=== PATIENT | male | born 1990 | race African-American/Black ===

== ENCOUNTER 2019-11-21 00:13 | Emergency (ER) | payer MEDICAID ==
[~2019-11-21] VITALS: Ht 172.7 cm; Wt 65.0 kg
[2019-11-21 00:41] VITALS: BP 118/63
== END 2019-11-21 01:45 | disposition left against medical advice (07) ==
LOC: ER 00:13
DX: Z53.21 Procedure and treatment not carried out due to patient leaving prior to being seen by health care provider (principal); J45.909 Unspecified asthma, uncomplicated; Z88.0 Allergy status to penicillin

== ENCOUNTER 2020-03-17 09:23 | Emergency (ER) | payer MEDICAID ==
[~2020-03-17] VITALS: Ht 167.6 cm; Wt 72.0 kg
[2020-03-17 09:26] VITALS: BP 128/78
== END 2020-03-17 11:48 | disposition left against medical advice (07) ==
LOC: ER 09:23
DX: J45.909 Unspecified asthma, uncomplicated (principal); F19.10 Other psychoactive substance abuse, uncomplicated; Z88.0 Allergy status to penicillin
CPT/HCPCS: 93005; 99283

== ENCOUNTER 2020-03-18 19:05 | Emergency (ER) | payer MEDICAID ==
[~2020-03-18] VITALS: Ht 170.2 cm; Wt 66.0 kg
[2020-03-18] MEDS ORDERED: HALOPERIDOL LACTATE 5MG/ML VIAL IM STA (21:52)
[2020-03-18] MEDS ORDERED: DIPHENHYDRAMINE 50MG/ML VIAL IM STA (21:52)
[2020-03-18] MEDS ORDERED: LORAZEPAM 2MG/ML CPJ IM ONE (22:00)
[2020-03-18 23:59] LABS: BASOPHILS % 0.1 % (0.0-2.0); EOSINOPHILS % 1.2 % (0.0-5.0); HEMATOCRIT. 37.8 % (42.0-52.0); HEMOGLOBIN. 12.6 g/dL (14.0-18.0); LYMPHOCYTES % 37.4 % (20.0-50.0); MEAN CORPUSCULAR HEMOGLOBIN 28.3 pg (28.0-32.0); MEAN CORPUSCULAR VOLUME 84.8 fL (80.0-94.0); MEAN PLATELET VOLUME 10.5 fl (7.4-10.4); MONOCYTES % 10.4 % (2.0-8.0); NEUTROPHILS % 50.9 % (40.0-76.0); PLATELET 188 x1000/uL (130-400); RED BLOOD CELL COUNT 4.46 mill/uL (4.7-6.1); RED CELL DISTRIBUTION WIDTH 13.5 % (11.6-14.6)
[2020-03-19 00:06] LABS: CHLORIDE 104 mEq/L (98-107)
[2020-03-19 00:11] LABS: ETHANOL BLOOD < 10 mg/dL
[2020-03-19 03:27] LABS: CLARITY URINE CLEAR (CLEAR); COLOR URINE YELLOW (YELLOW); KETONES URINE NEGATIVE (NEGATIVE); LEUKOCYTE ESTERASE URINE 1+ (NEGATIVE); NITRITE URINE NEGATIVE (NEGATIVE); OCCULT BLOOD URINE 2+ (NEGATIVE); PROTEIN URINE 1+ (NEGATIVE); SPECIFIC GRAVITY URINE 1.039 (1.005-1.030)
[2020-03-19 04:01] LABS: *AMPHETAMINES SCREEN URINE PRESUMTIVE POSITIVE (NEGATIVE); *BARBITURATES SCREEN URINE NEGATIVE (NEGATIVE); *BENZODIAZEPINES SCREEN URINE NEGATIVE (NEGATIVE); *COCAINE SCREEN URINE NEGATIVE (NEGATIVE); METHADONE URINE SCREEN NEGATIVE (NEGATIVE); OPIATES URINE SCREEN NEGATIVE (NEGATIVE)
[2020-03-19 04:02] LABS: CANNABINOID URINE SCREEN PRESUMTIVE POSITIVE (NEGATIVE); PHENCYCLIDINE URINE SCREEN NEGATIVE (NEGATIVE)
[2020-03-21] MEDS ORDERED: POTASSIUM CHLORIDE 20MEQ TABLET SR PO ONE (07:00)
[2020-03-21] MEDS ORDERED: NITROFURANTOIN 100MG M/M CAPSULE PO SCH (09:00)
[2020-03-21 11:30] VITALS: BP 110/66
== END 2020-03-21 12:15 | disposition home or self-care (01) ==
LOC: ER 19:05
DX: U07.1 COVID-19 (principal); T43.621A Poisoning by amphetamines, accidental (unintentional), initial encounter; F23 Brief psychotic disorder; N30.00 Acute cystitis without hematuria; R45.851 Suicidal ideations; J45.909 Unspecified asthma, uncomplicated; F17.210 Nicotine dependence, cigarettes, uncomplicated; F15.10 Other stimulant abuse, uncomplicated; F12.10 Cannabis abuse, uncomplicated; Z78.1 Physical restraint status; Z88.0 Allergy status to penicillin; Y92.018 Other place in single-family (private) house as the place of occurrence of the external cause
CPT/HCPCS: 36415; 80053; 80307; 80320; 80329; 85025; 87635; 93005; 96372; 99285; J1200; J1630; J2060; G0480